=== PATIENT | female | born 1990 | race Caucasian/White ===

== ENCOUNTER 2017-10-15 17:02 | Emergency (ER) | payer OTHER ==
[~2017-10-15] VITALS: Ht 172.7 cm; Wt 107.9 kg
[2017-10-15] MEDS ORDERED: CLONAZEPAM0.5 MG PO (18:18)
[2017-10-15] MEDS ORDERED: XANAX0.5 MG PO (18:19)
[2017-10-15] MEDS ORDERED: ZOLOFT100 MG PO (18:19)
[2017-10-15 19:42] VITALS: BP 141/80
== END 2017-10-15 19:57 | disposition home or self-care (01) ==
LOC: EME 17:02
DX: F41.9 Anxiety disorder, unspecified (principal); F33.1 Major depressive disorder, recurrent, moderate; J45.909 Unspecified asthma, uncomplicated; Z88.1 Allergy status to other antibiotic agents
CPT/HCPCS: 90839; 99281; 99284

== ENCOUNTER 2017-11-24 10:15 | Inpatient (IN) | payer OTHER ==
[~2017-11-24] VITALS: Ht 172.7 cm; Wt 106.6 kg
[~2017-11-24 10:15] MED LIST: CLONAZEPAM0.5 MG PO; XANAX0.5 MG PO; ZOLOFT100 MG PO
[2017-11-24 11:01] LABS: BASOPHIL (%) 1.1 % (0-1); BASOPHIL COUNT 0.1 K/uL (0-0.1); EOSINOPHIL COUNT 0.4 K/uL (0-0.3); HEMATOCRIT 44.1 % (36.0-46.0); HEMOGLOBIN 14.8 G/DL (11.9-15.5); IMMATURE GRANULOCYTE (%) 0.7 % (0.0-0.7); LYMPHOCYTE (%) 30.6 % (15-42); LYMPHOCYTE COUNT 2.7 K/uL (1.0-2.8); MCH 28.4 PG (29.0-34.0); MCHC 33.6 G/DL (30.0-36.0); MCV 84.6 FL (83-99); MONOCYTE COUNT 0.5 K/uL (0-0.8); NEUTROPHIL (%) 56.6 % (45-76); NEUTROPHIL COUNT 4.9 K/uL (1.8-6.4); PLATELET COUNT 340 K/uL (156-360); RBC DIS.WIDTH-CV 13.2 % (11.8-14.6); RBC DIS.WIDTH-SD 40.7 % (39-53); RED BLOOD COUNT 5.21 M/uL (3.80-5.20); WHITE BLOOD COUNT 8.7 K/uL (4.1-10.2)
[2017-11-24 11:16] LABS: CHLORIDE 105 mEq/L (99-109); POTASSIUM 3.8 mEq/L (3.7-5.4); SODIUM 138 mEq/L (136-147)
[2017-11-24 11:17] LABS: GLUCOSE 129 mg/dL (70-99)
[2017-11-24 11:21] LABS: CREATININE 0.7 mg/dL (0.6-1.3); GFR ESTIMATE (CALCULATED) > 59 mL/min/; SERUM ETHYL ALCOHOL < 10 mg/dL
[2017-11-24 11:22] LABS: UREA NITROGEN (BUN) 10 mg/dL (9-23)
[2017-11-24 11:30] LABS: QUANTITATIVE HCG < 4.0 MIU/ML
[2017-11-24 12:38] LABS: AMPHETAMINE NEGATIVE (500 ng/mL); BARBITURATES NEGATIVE (200 ng/mL); BENZODIAZEPINES NEGATIVE (150 ng/mL); BUPRENORPHINE NEGATIVE (10 ng/mL); COCAINE NEGATIVE (150 ng/mL); METHADONE NEGATIVE (200 ng/mL); METHAMPHETAMINE NEGATIVE (500 ng/mL); OPIATES (MORPHINE) NEGATIVE (100 ng/mL); OXYCODONE NEGATIVE (100 ng/mL); PHENCYCLIDINE NEGATIVE (25 ng/mL); PROPOXYPHENE NEGATIVE (300 ng/mL); THC CANNABINOIDS NEGATIVE (50 ng/mL); TRICYCLIC ANTIDEPRESSANTS NEGATIVE (300 ng/mL)
[2017-11-24 16:18] VITALS: BP 137/88
[2017-11-24] MEDS ORDERED: TYLENOL EXTRA500 MG PO (16:37)
[2017-11-24] MEDS ORDERED: CYMBALTA60 MG PO (16:38)
[2017-11-24] MEDS ORDERED: CYMBALTA30 MG PO (16:38)
[2017-11-24 17:07] VITALS: BP 137/87
[2017-11-25 09:41] VITALS: BP 132/75
== END 2017-11-25 12:57 | disposition home or self-care (01) | DRG 882 ==
LOC: EME 10:15 → ENRESERV 15:35 → EME 15:46 → 1WEST 16:06
PROVIDERS: Emergency Medicine
DX: F43.25 Adjustment disorder with mixed disturbance of emotions and conduct (principal); R45.851 Suicidal ideations; F43.23 Adjustment disorder with mixed anxiety and depressed mood; I10 Essential (primary) hypertension; Z63.79 Other stressful life events affecting family and household
CPT/HCPCS: 80048; 84702; 85025; 90837; 99281; 99285; G0480